=== PATIENT | female | born 1960 | race Caucasian/White ===

== ENCOUNTER 2024-08-23 08:44 | Outpatient (CLI) | payer MEDICARE | END 2024-08-23 08:45 | disposition home or self-care (01) | LOC: CSHULT 08:44 | PROVIDERS: ATTEND Nurse Practitioner Family | DX: E04.9 Nontoxic goiter, unspecified (principal); E06.3 Autoimmune thyroiditis; E03.9 Hypothyroidism, unspecified; R53.83 Other fatigue; E07.89 Other specified disorders of thyroid | CPT/HCPCS: 76536 ==